=== PATIENT | male | born 1960 | race Caucasian/White ===

== ENCOUNTER 2016-10-03 01:31 | Emergency (ER) | payer SELFPAY ==
[~2016-10-03] VITALS: Ht 177.8 cm; Wt 48.1 kg
[2016-10-03] MEDS ORDERED: SODIUM CHLORIDE FLUSH 10ML SYR IVF ONE (02:00)
[2016-10-03 02:09] LABS: ASPARTATE AMINO TRANSFERASE 35 U/L (15-37); BLOOD UREA NITROGEN 23 mg/dL (7-18)
[2016-10-03 04:14] VITALS: BP 133/79
[2016-10-03] MEDS ORDERED: OMNIPAQUE 350 MG/ML, 100ML BOTTLE ONE (05:52)
== END 2016-10-03 04:17 | disposition home or self-care (01) ==
LOC: ED 02:50
DX: N39.0 Urinary tract infection, site not specified (principal); R31.9 Hematuria, unspecified; D72.829 Elevated white blood cell count, unspecified
CPT/HCPCS: 36415; 51702; 74177; 80053; 81001; 83690; 85025; 99284; Q9967

== ENCOUNTER 2016-10-04 14:16 | Emergency (ER) | payer SELFPAY ==
[~2016-10-04] VITALS: Ht 177.8 cm; Wt 51.0 kg
[2016-10-04 18:20] VITALS: BP 108/74
== END 2016-10-04 18:22 | disposition home or self-care (01) ==
LOC: ED 15:24
DX: N40.1 Benign prostatic hyperplasia with lower urinary tract symptoms (principal); R33.8 Other retention of urine
CPT/HCPCS: 51702; 81001; 99284

== ENCOUNTER 2019-03-15 13:51 | Emergency (ER) | payer MEDICAID ==
--- NOTE | 2019-03-15 14:00 | NUR ---
PT CALLED INTO TRIAGE- NOT IN LOBBY AT THIS TIME.
--- NOTE | 2019-03-15 14:13 | NUR ---
PT CALLED INTO TRIAGE, SECOND CALL- NOT IN LOBBY AT THIS TIME.
--- NOTE | 2019-03-15 14:29 | NUR ---
PT CALLED INTO TRIAGE, THIRD CALL- NOT IN LOBBY AT THIS TIME.
== END 2019-03-15 14:31 | disposition left against medical advice (07) ==
LOC: ED 14:25
DX: R07.9 Chest pain, unspecified (principal); Z53.21 Procedure and treatment not carried out due to patient leaving prior to being seen by health care provider

== ENCOUNTER 2019-03-15 16:15 | Emergency (ER) | payer MEDICAID ==
[~2019-03-15] VITALS: Ht 177.8 cm; Wt 52.8 kg
[2019-03-15 16:46] VITALS: BP 135/76
--- NOTE | 2019-03-15 17:43 | NUR ---
JUNIOR ART DIRECTOR: PT SHOWERED AND PROVIDED WITH CLOTHING. LEFT BEFORE DC PAPERWORK OR COMMUNITY RESOURCES WERE PROVIDED. PA AWARE.
== END 2019-03-15 17:45 | disposition left against medical advice (07) ==
LOC: ED 16:40
DX: B86 Scabies (principal)
CPT/HCPCS: 99281

== ENCOUNTER 2019-04-01 11:19 | Emergency (ER) | payer MEDICAID ==
[~2019-04-01] VITALS: Ht 177.8 cm; Wt 52.0 kg
[2019-04-01 11:32] VITALS: BP 120/64
[2019-04-01] MEDS ORDERED: CEFAZOLIN 1,000 MG IM ONE (12:00)
[2019-04-01] MEDS ORDERED: L.E.T SOLUTION TP ONE ×2 (12:00→12:06)
[2019-04-01] MEDS ORDERED: KETOROLAC 30 MG/1 ML IM ONE (12:00)
[2019-04-01] MEDS ORDERED: DIPH,PERTUSS(ACELL),TET VAC/PF 0.5 ML IM-VACC ONE ×2 (12:00→12:09)
[2019-04-01] MEDS ORDERED: KETOROLAC 30 MG/1 ML ONE (12:08)
[2019-04-01] MEDS ORDERED: CEFAZOLIN 1,000 MG ONE (12:09)
== END 2019-04-01 13:50 | disposition home or self-care (01) ==
LOC: ED 13:45
DX: S61.211A Laceration without foreign body of left index finger without damage to nail, initial encounter (principal); M54.2 Cervicalgia; W26.0XXA Contact with knife, initial encounter; Y93.89 Activity, other specified; Y92.410 Unspecified street and highway as the place of occurrence of the external cause; Y99.8 Other external cause status
CPT/HCPCS: 72125; 73030; 73130; 90471; 90715; 96372; 99284; J0690; J1885

== ENCOUNTER 2019-04-07 08:53 | Emergency (ER) | payer MEDICAID ==
[~2019-04-07] VITALS: Ht 177.8 cm; Wt 58.0 kg
[2019-04-07] MEDS ORDERED: OXYcodone/APAP 5/325MG TABLET PO ONE (09:00)
[2019-04-07] MEDS ORDERED: CEFAZOLIN 1,000 MG IM ONE (09:00)
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
[2019-04-07] MEDS ORDERED: OXYcodone/APAP 5/325MG TABLET ONE (09:07)
[2019-04-07] MEDS ORDERED: CEFAZOLIN 1,000 MG ONE (09:07)
--- NOTE | 2019-04-07 09:17 | NUR ---
PT MEDICATED PER EMAR. PT TOLERATED WELL. PT'S AOX4. RESPS EVEN AND UNLABORED.
[2019-04-07] MEDS ORDERED: LIDOCAINE-MPF 1%, 2ML ONE (09:23)
[2019-04-07] MEDS ORDERED: LIDOCAINE-MPF 1%, 5ML INFIL ONE (09:30)
[2019-04-07 10:16] VITALS: BP 120/67
--- NOTE | 2019-04-07 10:16 | NUR ---
Patient given discharge instructions and they have confirmed that they understand the instructions. Patient ambulatory with steady gait.
== END 2019-04-07 10:17 | disposition home or self-care (01) ==
LOC: ED 09:10
DX: L03.114 Cellulitis of left upper limb (principal); L02.512 Cutaneous abscess of left hand
CPT/HCPCS: 10060; 93971; 96372; 99284; J0690

== ENCOUNTER 2019-04-07 19:54 | Inpatient (IN) | payer MEDICAID ==
[~2019-04-07] VITALS: Ht 177.8 cm; Wt 57.0 kg
[2019-04-07] MEDS: VANCOMYCIN PMX 1GM/200ML 200 ML IV SCH ×2 (00:30→23:30)
--- NOTE | 2019-04-07 20:22 | NUR ---
pt to ed for left hand abscesses and lacerations with streaking up to axilla. pt was seen this am for the same. pt connected to monitors. vsrichard. REANNA Pillai, to bs for assessment. awaiting orders.
[2019-04-07] MEDS ORDERED: CEFTRIAXONE PMX 1GM/50ML 50 ML IV ONE (20:30)
[2019-04-07] MEDS ORDERED: MORPHINE SULFATE 4 MG/ML, 1ML IVPush ONE (20:30)
[2019-04-07] MEDS ORDERED: ONDANSETRON 2MG/ML, 2ML IVPush ONE (20:30)
[2019-04-07] MEDS ORDERED: CEFTRIAXONE PMX 1GM/50ML 50 ML ONE (20:46)
[2019-04-07] MEDS ORDERED: ONDANSETRON 2MG/ML, 2ML ONE (20:46)
[2019-04-07] MEDS ORDERED: MORPHINE SULFATE 4 MG/ML, 1ML ONE (20:47)
[2019-04-07 20:57] LABS: MEAN CORPUSCULAR HEMOGLOBIN 33.6 pg (27.5-34.5); MEAN CORPUSCULAR HGB CONC 33.6 g/dL (33.2-36.2); MEAN CORPUSCULAR VOLUME 100.1 fL (81-97); MEAN PLATELET VOLUME 7.9 fL (7.4-10.4); PLATELET COUNT 312 x10^3/uL (130-400); RED BLOOD COUNT 4.56 x10^6/uL (4.38-5.82); RED CELL DISTRIBUTION WIDTH 14.4 % (9.4-14.8)
[2019-04-07 21:05] LABS: ANION GAP 8 mmol/L (5-15); CALCIUM 8.7 mg/dL (8.5-10.1); CHLORIDE 98 mmol/L (98-107); CREATININE 1.19 mg/dL (0.7-1.3)
--- NOTE | 2019-04-07 21:10 | NUR ---
PT MEDICATED PER JUN. DIONNE SANABRIA. PT RESTING IN ROOM. NO NEEDS EXPRESSED. PLAN TO ADMIT. AWAITING ROOM ASSIGNMENT.
[2019-04-07] MEDS ORDERED: SODIUM CHLORIDE 0.9% 1,000ML IVBOLUS ONE (21:30)
[2019-04-07] MEDS ORDERED: SODIUM CHLORIDE FLUSH 10ML SYR IVF PRN (21:30)
--- NOTE | 2019-04-07 21:35 | NUR ---
PINK SEPSIS SHEET COMPLETED AND PLACED ON CHART. BC X2 COLLECTED. IVABX COMPLETED AFTER BC X2 COLLECTED. IVF BOLUS STARTED. VSS. NO NEEDS EXPRESSED. AWAITING ROOM ASSIGNMENT.
--- NOTE | 2019-04-07 22:10 | NUR ---
REPORT FROM AFTAB FLORES
[2019-04-07 22:14] LABS: MD YES
[2019-04-07 22:18] LABS: BAND#(MANUAL) 2.44 x10^3/uL; BANDS%(MANUAL) 13 % (0-7); LYMPH#(MANUAL) 0.75 x10^3/uL (1-3.4); LYMPHS% (MANUAL) 4 % (22-44); MONOS#(MANUAL) 0.94 x10^3/uL (0.3-2.7); MONOS% (MANUAL) 5 % (2-9); REACTIVE LYMPHS # (MANUAL) 0.38 x10^3/uL (0-0); REACTIVE LYMPHS % (MANUAL) 2 % (0-0); SEG#(MANUAL) 14.29 x10^3/uL (1.8-6.8); SEGS% (MANUAL) 76 % (42-75)
[2019-04-07 22:19] LABS: ANISOCYTOSIS 1+
[2019-04-07 22:20] LABS: <PLATELET ESTIMATE> ADEQUATE; <PLT MORPHOLOGY> NORMAL PLT MORPH
--- NOTE | 2019-04-07 22:35 | NUR ---
report to AFTAB baca
[2019-04-07] MEDS ORDERED: VANCOMYCIN PER PHARMACY MC PRN (23:00)
[2019-04-07] MEDS ORDERED: ACETAMINOPHEN 325 MG TABLET PO PRN (23:00)
[2019-04-07] MEDS ORDERED: morphine SULFATE 10 MG/ML, 1ML IVPush PRN (23:00)
[2019-04-07] MEDS ORDERED: PHARMACOKINETIC MONITORING MC PRN (23:30)
[2019-04-07] MEDS: KETOROLAC 30 MG/1 ML IV PRN (23:49)
[2019-04-07] MEDS: NICOTINE 14MG/24 HR PATCH.TD24 TD SCH (23:52)
[2019-04-08] MEDS: PIPERACILLIN/TAZO/PMX 3.375GM 50 ML IV SCH ×5 (00:01→23:45)
[2019-04-08 00:15] VITALS: BP 117/68
[2019-04-08 00:26] LABS: ALBUMIN 3.8 g/dL (3.4-5.0); BILIRUBIN, DIRECT 0.2 mg/dL (0.1-0.2)
[2019-04-08 00:27] LABS: BILIRUBIN,INDIRECT 0.4 mg/dL (0.0-2.0); BILIRUBIN,TOTAL 0.6 mg/dL (0.2-1.0); TOTAL PROTEIN 7.9 g/dL (6.4-8.2)
[2019-04-08] MEDS: VANCOMYCIN PMX 1GM/200ML 200 ML IV SCH ×2 (00:30→12:35)
[2019-04-08] MEDS: POTASSIUM CHLORIDE 20 MEQ, MAGNESIUM SULFATE 2 GM, THIAMINE 200 MG, MVI ADULT 10 ML, FO... IV SCH (03:26)
[2019-04-08] MEDS ORDERED: SODIUM CHLORIDE 0.9% 1,000ML IVBOLUS ONE (05:30)
[2019-04-08 06:01] LABS: ANION GAP 6 mmol/L (5-15); CALCIUM 7.9 mg/dL (8.5-10.1); CHLORIDE 105 mmol/L (98-107); CREATININE 0.99 mg/dL (0.7-1.3)
[2019-04-08] MEDS ORDERED: OMNIPAQUE 350 MG/ML, 100ML BOTTLE ONE (06:15)
[2019-04-08 06:23] LABS: MEAN CORPUSCULAR HEMOGLOBIN 33.7 pg (27.5-34.5); MEAN CORPUSCULAR HGB CONC 33.4 g/dL (33.2-36.2); MEAN CORPUSCULAR VOLUME 100.9 fL (81-97); MEAN PLATELET VOLUME 8.3 fL (7.4-10.4); PLATELET COUNT 259 x10^3/uL (130-400); RED BLOOD COUNT 3.87 x10^6/uL (4.38-5.82); RED CELL DISTRIBUTION WIDTH 14.2 % (9.4-14.8)
[2019-04-08 06:45] LABS: AMPHETAMINE SCREEN, URINE Positive (Negative); BARBITURATE SCREEN, URINE Negative (Negative); BENZODIAZEPINE SCREEN, URINE Negative (Negative); CANNABINOID SCREEN, URINE Negative (Negative); COCAINE SCREEN, URINE Negative (Negative); METHADONE SCREEN, URINE Negative (Negative); OPIATE SCREEN, URINE Positive (Negative)
[2019-04-08 06:46] VITALS: BP 125/69
[2019-04-08 07:01] LABS: MD YES
[2019-04-08 07:04] LABS: ANISOCYTOSIS 1+; BAND#(MANUAL) 2.69 x10^3/uL; BANDS%(MANUAL) 16 % (0-7); LYMPH#(MANUAL) 2.02 x10^3/uL (1-3.4); LYMPHS% (MANUAL) 12 % (22-44); MONOS#(MANUAL) 1.68 x10^3/uL (0.3-2.7); MONOS% (MANUAL) 10 % (2-9); SEG#(MANUAL) 10.42 x10^3/uL (1.8-6.8); SEGS% (MANUAL) 62 % (42-75)
[2019-04-08 07:05] LABS: <PLATELET ESTIMATE> ADEQUATE; <PLT MORPHOLOGY> NORMAL PLT MORPH
[2019-04-08 07:09] LABS: HCT (SEDRATE) 39.7 % (39.2-51.8)
[2019-04-08] MEDS: KETOROLAC 30 MG/1 ML IV PRN ×2 (08:35→19:36)
[2019-04-08] MEDS ORDERED: LORazepam 2 MG/ML, 1ML IVPush ONE (09:00)
[2019-04-08] MEDS ORDERED: LORazepam 1MG TABLET PO PRN ×2 (10:00)
[2019-04-08] MEDS ORDERED: LORazepam 2 MG/ML, 1ML IV PRN ×4 (10:00)
[2019-04-08] MEDS ORDERED: GADOTERATE 7.5 MMOL/15 ML SYR ONE (14:59)
[2019-04-08 15:00] VITALS: BP 110/68
[2019-04-08 19:28] VITALS: BP 145/79
[2019-04-08] MEDS: NICOTINE 14MG/24 HR PATCH.TD24 TD SCH (22:59)
[2019-04-09] MEDS: VANCOMYCIN PMX 1GM/200ML 200 ML IV SCH ×3 (00:22→23:58)
[2019-04-09 01:35] VITALS: BP 110/66
[2019-04-09 03:35] LABS: CLOSTRIDIUM DIFFICILE TOXIN NEGATIVE (Negative)
[2019-04-09 03:36] LABS: CLOSTRIDIUM DIFFICILE ANTIGEN POSITIVE
[2019-04-09] MEDS: METRONIDAZOLE PMX 500MG/100ML 100 ML IV SCH ×2 (04:21→11:27)
[2019-04-09] MEDS: POTASSIUM CHLORIDE 20 MEQ, MAGNESIUM SULFATE 2 GM, THIAMINE 200 MG, MVI ADULT 10 ML, FO... IV SCH (04:21)
[2019-04-09 06:03] LABS: BASOPHILS # (AUTO) 0.03 x10^3/uL (0-0.1); BASOPHILS % (AUTO) 0 % (0-1); EOSINOPHILS # (AUTO) 0.29 x10^3/uL (0-0.4); EOSINOPHILS % (AUTO) 2 % (1-7); LYMPHOCYTES # (AUTO) 1.56 x10^3/uL (1-3.4); LYMPHOCYTES % (AUTO) 12 % (22-44); MD NO; MEAN CORPUSCULAR HEMOGLOBIN 33.4 pg (27.5-34.5); MEAN CORPUSCULAR HGB CONC 32.9 g/dL (33.2-36.2); MEAN CORPUSCULAR VOLUME 101.6 fL (81-97); MEAN PLATELET VOLUME 8.3 fL (7.4-10.4); MONOCYTES # (AUTO) 0.95 x10^3/uL (0.2-0.8); MONOCYTES % (AUTO) 7 % (2-9); NEUTROPHILS # (AUTO) 10.78 x10^3/uL (1.8-6.8); NEUTROPHILS % (AUTO) 79 % (42-75); PLATELET COUNT 214 x10^3/uL (130-400); RED BLOOD COUNT 3.87 x10^6/uL (4.38-5.82); RED CELL DISTRIBUTION WIDTH 14.3 % (9.4-14.8)
[2019-04-09 06:10] LABS: CHLORIDE 108 mmol/L (98-107)
[2019-04-09 06:17] LABS: ALANINE AMINOTRANSFERASE 77 U/L (12-78); ALBUMIN 2.3 g/dL (3.4-5.0); ALKALINE PHOSPHATASE 255 U/L (45-117); ANION GAP 7 mmol/L (5-15); BILIRUBIN,TOTAL 0.3 mg/dL (0.2-1.0); CREATININE 0.95 mg/dL (0.7-1.3); TOTAL PROTEIN 6.2 g/dL (6.4-8.2)
[2019-04-09] MEDS: PIPERACILLIN/TAZO/PMX 3.375GM 50 ML IV SCH ×3 (06:25→19:40)
[2019-04-09 07:09] VITALS: BP 145/74
[2019-04-09] MEDS: KETOROLAC 30 MG/1 ML IV PRN (09:15)
[2019-04-09] MEDS: LORazepam 1MG TABLET PO PRN ×2 (11:27→21:46)
[2019-04-09 13:59] VITALS: BP 162/92
[2019-04-09] MEDS: LORazepam 0.5MG TABLET PO PRN (15:59)
[2019-04-09] MEDS: VANCOMYCIN 50 MG/ML ORAL SUSP PO SCH ×2 (16:27→21:46)
[2019-04-09 19:17] VITALS: BP 128/75
[2019-04-09] MEDS: NICOTINE 14MG/24 HR PATCH.TD24 TD SCH (21:45)
[2019-04-09] MEDS ORDERED: POTASSIUM CHLORIDE 20 MEQ, MAGNESIUM SULFATE 2 GM, THIAMINE 200 MG, MVI ADULT 10 ML, FO... IV SCH (22:39)
[2019-04-10] MEDS: PIPERACILLIN/TAZO/PMX 3.375GM 50 ML IV SCH ×4 (01:43→22:37)
[2019-04-10 01:51] VITALS: BP 130/69
[2019-04-10] MEDS: VANCOMYCIN 50 MG/ML ORAL SUSP PO SCH ×4 (04:14→22:37)
[2019-04-10 05:45] LABS: BASOPHILS # (AUTO) 0.04 x10^3/uL (0-0.1); BASOPHILS % (AUTO) 1 % (0-1); EOSINOPHILS # (AUTO) 0.39 x10^3/uL (0-0.4); EOSINOPHILS % (AUTO) 4 % (1-7); LYMPHOCYTES # (AUTO) 1.73 x10^3/uL (1-3.4); LYMPHOCYTES % (AUTO) 18 % (22-44); MD NO; MEAN CORPUSCULAR HEMOGLOBIN 33.1 pg (27.5-34.5); MEAN CORPUSCULAR HGB CONC 33.5 g/dL (33.2-36.2); MEAN PLATELET VOLUME 8.1 fL (7.4-10.4); MONOCYTES # (AUTO) 0.84 x10^3/uL (0.2-0.8); MONOCYTES % (AUTO) 9 % (2-9); NEUTROPHILS # (AUTO) 6.69 x10^3/uL (1.8-6.8); NEUTROPHILS % (AUTO) 69 % (42-75); PLATELET COUNT 263 x10^3/uL (130-400); RED BLOOD COUNT 4.23 x10^6/uL (4.38-5.82); RED CELL DISTRIBUTION WIDTH 14.3 % (9.4-14.8)
[2019-04-10 05:56] LABS: ALANINE AMINOTRANSFERASE 69 U/L (12-78); ALBUMIN 2.5 g/dL (3.4-5.0); ANION GAP 5 mmol/L (5-15); CALCIUM 8.4 mg/dL (8.5-10.1); CHLORIDE 110 mmol/L (98-107); CREATININE 0.87 mg/dL (0.7-1.3)
[2019-04-10 05:59] LABS: ALKALINE PHOSPHATASE 226 U/L (45-117); BILIRUBIN,TOTAL 0.4 mg/dL (0.2-1.0)
[2019-04-10 07:16] VITALS: BP 137/79
[2019-04-10] MEDS: LORazepam 0.5MG TABLET PO PRN (11:39)
[2019-04-10] MEDS: KETOROLAC 30 MG/1 ML IV PRN ×2 (11:39→20:02)
[2019-04-10 12:43] VITALS: BP 123/65
[2019-04-10] MEDS: THIAMINE 100MG TABLET PO SCH (13:16)
[2019-04-10] MEDS: MULTIVITAMIN 1 TABLET PO SCH (13:16)
[2019-04-10] MEDS: FOLIC ACID 1 MG TABLET PO SCH (13:16)
[2019-04-10] MEDS: VANCOMYCIN PMX 1GM/200ML 200 ML IV SCH (13:16)
[2019-04-10 19:13] VITALS: BP 136/77
[2019-04-10] MEDS: NICOTINE 14MG/24 HR PATCH.TD24 TD SCH (22:37)
[2019-04-11 01:00] VITALS: BP 147/79
[2019-04-11] MEDS: VANCOMYCIN PMX 1GM/200ML 200 ML IV SCH ×2 (01:37→14:02)
[2019-04-11] MEDS: PIPERACILLIN/TAZO/PMX 3.375GM 50 ML IV SCH ×3 (04:29→16:14)
[2019-04-11] MEDS: KETOROLAC 30 MG/1 ML IV PRN ×3 (04:30→17:01)
[2019-04-11] MEDS: VANCOMYCIN 50 MG/ML ORAL SUSP PO SCH ×3 (04:30→16:14)
[2019-04-11 08:43] VITALS: BP 135/82
[2019-04-11] MEDS: THIAMINE 100MG TABLET PO SCH (10:36)
[2019-04-11] MEDS: FOLIC ACID 1 MG TABLET PO SCH (10:36)
[2019-04-11] MEDS: MULTIVITAMIN 1 TABLET PO SCH (10:36)
[2019-04-11 15:13] VITALS: BP 133/80
== END 2019-04-11 18:20 | disposition left against medical advice (07) | DRG 872 ==
LOC: ED 20:16 → EDIP 21:30 → 4NE 23:05
PROVIDERS: ADMIT Family Medicine; ATTEND Internal Medicine
DX: A41.9 Sepsis, unspecified organism (principal); E46 Unspecified protein-calorie malnutrition; L03.113 Cellulitis of right upper limb; L03.114 Cellulitis of left upper limb; Z68.1 Body mass index [BMI] 19.9 or less, adult; D75.89 Other specified diseases of blood and blood-forming organs; F10.10 Alcohol abuse, uncomplicated; Z53.29 Procedure and treatment not carried out because of patient's decision for other reasons; R73.9 Hyperglycemia, unspecified; F17.210 Nicotine dependence, cigarettes, uncomplicated; I88.9 Nonspecific lymphadenitis, unspecified; Z59.0 Homelessness; Z71.6 Tobacco abuse counseling
CPT/HCPCS: 36415; 73130; 84145; 99285; J3370; J7042; 70450; 80048; 80053; 80076; 80202; 80307; 82607; 83605; 83735; 84443; 85025; 85651; 86140; 87040; 87081; 87324; 87493; G0378; J0696; J1885; J2405; J2543; J3411; J3475; J3480; Q9967; A9575; J2060; J2270; J7030

== ENCOUNTER 2019-04-22 22:19 | Emergency (ER) | payer MEDICAID ==
[~2019-04-22] VITALS: Ht 177.8 cm; Wt 51.7 kg
--- NOTE | 2019-04-22 22:24 | NUR ---
LEAD RECOVERER: NIL WHEN CALLED FOR TRIAGE
[2019-04-22 22:34] VITALS: BP 126/61
--- NOTE | 2019-04-22 22:39 | NUR ---
PATIENT AMBULATING STEADILY, CLEAR SPEECH, PLACED BACK OUT IN LOBBY
--- NOTE | 2019-04-22 23:17 | NUR ---
DC EDUCATION PROVIDED, PT DEMONSTRATES UNDERSTANDING. PT AMBULATED STEADILY TO DC WITH RN
[2019-04-22] MEDS ORDERED: IBUPROFEN 200 MG TABLET PO ONE (23:30)
== END 2019-04-22 23:18 | disposition home or self-care (01) ==
LOC: ED 23:12
DX: K62.3 Rectal prolapse (principal); K40.90 Unilateral inguinal hernia, without obstruction or gangrene, not specified as recurrent; F17.210 Nicotine dependence, cigarettes, uncomplicated; K59.00 Constipation, unspecified; Z59.0 Homelessness
CPT/HCPCS: 99283

== ENCOUNTER 2019-04-27 07:10 | Emergency (ER) | payer MEDICAID ==
[~2019-04-27] VITALS: Ht 177.8 cm; Wt 50.7 kg
--- NOTE | 2019-04-27 08:07 | NUR ---
TAPE CUTTER: PT TO ROOM FROM DHRUV SOMMERS
--- NOTE | 2019-04-27 08:25 | NUR ---
THIS IS A 58 YO M W/ C/O RIGHT LOWER ABD PAIN. DIARRHEA AND STATES "MY HERNIA FELL OUT, I HAD TO PUSH IT BACK INTO MY BODY". PATIENT HAS VISIBLE PROTUSION ON THE RIGHT INGUINAL AREA. RESPIRATIONS ARE EVEN AND UNLABORED. PATIENT IS IN NO ACUTE DISTRESS. PATIENT IS RESTING ON GURNEY WITH CALL LIGHT IN REACH. DENIES FURTHER NEEDS AT THIS TIME.
--- NOTE | 2019-04-27 08:27 | NUR ---
PATIENT AMBULATED TO THE BATHROOM WITH A STEADY GAIT.
[2019-04-27 08:29] VITALS: BP 141/83
[2019-04-27] MEDS ORDERED: CEPH-376 PO (08:33)
[2019-04-27] MEDS ORDERED: NAPR-685 PO (08:33)
[2019-04-27] MEDS ORDERED: IBUP-1222 PO (08:33)
--- NOTE | 2019-04-27 08:58 | NUR ---
TASK RN: PT RESTING ON BHASKAR. ZIGGY. PIV INITIATED FOR CT ABD/PELVIS W/ CONT. PT EDUCATED ON NEED FOR CT AND IS AGREEABLE TO THIS. PT ALSO EDUCATED ON NEED FOR UA SAMPLE. URINAL LEFT AT BEDSIDE.
[2019-04-27 09:09] LABS: MEAN CORPUSCULAR HGB CONC 33.9 g/dL (33.2-36.2); MEAN CORPUSCULAR VOLUME 97.3 fL (81-97); MEAN PLATELET VOLUME 7.7 fL (7.4-10.4); PLATELET COUNT 319 x10^3/uL (130-400); RED BLOOD COUNT 4.11 x10^6/uL (4.38-5.82); RED CELL DISTRIBUTION WIDTH 14.3 % (9.4-14.8)
[2019-04-27 09:17] LABS: ALANINE AMINOTRANSFERASE 46 U/L (12-78); ANION GAP 8 mmol/L (5-15); CALCIUM 9.5 mg/dL (8.5-10.1); CHLORIDE 102 mmol/L (98-107); CREATININE 0.91 mg/dL (0.7-1.3)
[2019-04-27 09:20] LABS: ALKALINE PHOSPHATASE 181 U/L (45-117); BILIRUBIN,TOTAL 0.6 mg/dL (0.2-1.0); TOTAL PROTEIN 8.3 g/dL (6.4-8.2)
--- NOTE | 2019-04-27 09:22 | NUR ---
URINE COLLECTED AND SENT TO LAB.
[2019-04-27 09:37] LABS: MICROSCOPIC INDICATED
[2019-04-27 09:43] LABS: BASOPHILS # (AUTO) 0.05 x10^3/uL (0-0.1); BASOPHILS % (AUTO) 0 % (0-1); EOSINOPHILS # (AUTO) 0.05 x10^3/uL (0-0.4); EOSINOPHILS % (AUTO) 0 % (1-7); LYMPHOCYTES # (AUTO) 1.13 x10^3/uL (1-3.4); LYMPHOCYTES % (AUTO) 9 % (22-44); MD SCAN; MONOCYTES # (AUTO) 0.62 x10^3/uL (0.2-0.8); MONOCYTES % (AUTO) 5 % (2-9); NEUTROPHILS # (AUTO) 10.78 x10^3/uL (1.8-6.8); NEUTROPHILS % (AUTO) 85 % (42-75)
--- NOTE | 2019-04-27 09:57 | NUR ---
PATIENT AMBULATED TO THE COMMODE WITH A STEADY GAIT. HAT PLACED IN COMMODE TO COLLECT STOOL SAMPLE.
--- NOTE | 2019-04-27 10:14 | NUR ---
STOOL COLLECTED AND SENT TO LAB.
[2019-04-27 10:27] LABS: CULTURE INDICATED? NO
--- NOTE | 2019-04-27 10:34 | NUR ---
Patient given discharge instructions and they have confirmed that they understand the instructions. Patient ambulatory with steady gait.
[2019-04-27 11:34] LABS: CLOSTRIDIUM DIFFICILE ANTIGEN POSITIVE; CLOSTRIDIUM DIFFICILE TOXIN POSITIVE (Negative)
--- NOTE | 2019-04-27 11:37 | NUR ---
RECEIVED CALL FROM LAB, CDIFF POSITIVE ANTIGEN AND TOXIN. PT HAS BEEN DC'D. TO BE DISCUSSED WITH .
--- NOTE | 2019-04-27 11:50 | NUR ---
DISCUSSED C.DIFF LAB RESULTS WITH DR. MENSAH. CALLED [facility] AND SPOKE WITH KIM, WHO STATES HE WILL NOTIFY PATIENT TO COME BACK TO THE ED FOR FURTHER TREATMENT IF HE PRESENTS TO THE SNF. PATIENT HAS NO ADDRESS OR PHONE AT THIS TIME AND IS HOMELESS.
== END 2019-04-27 10:42 | disposition home or self-care (01) ==
LOC: ED 07:30
DX: K62.3 Rectal prolapse (principal); R19.7 Diarrhea, unspecified
CPT/HCPCS: 36415; 80053; 81001; 85025; 87324; 89055; 99283

== ENCOUNTER 2019-06-21 04:00 | Emergency (ER) | payer MEDICAID ==
[~2019-06-21] VITALS: Ht 177.8 cm; Wt 57.9 kg
[~2019-06-21 04:00] MED LIST: CEPH-376 PO; IBUP-1222 PO; NAPR-685 PO
--- NOTE | 2019-06-21 04:06 | NUR ---
NIL X2 [id number]
[2019-06-21 04:07] VITALS: BP 166/79
--- NOTE | 2019-06-21 04:26 | NUR ---
PT TO ED WITH C/O TRIPPING AND KNOCKING OUT TEETH. PT REPORTS SEVERAL LOWER AND 1 UPPER TOOTH MISSING, ALSO REPORTS SEVERAL LOOSE TEETH. PT HAS SEVERAL CHOWDARY TEETH. PT DENIES LOC OR OTHER TRAUMA, DENIES OTHER C/O AT THIS TIME. NO SIGNS OF RECENT FACIAL TRAUMA NOTED, PT GUMS APPEAR INTACT THROUGHOUT. PT PLACED ON SPO2 MONITOR, CALL LIGHT WITHIN REACH, ALL SAFETY MEASURES IN PLACE.
[2019-06-21] MEDS ORDERED: HYDROcodone/APAP 5/325 TABLET PO ONE (05:00)
[2019-06-21] MEDS ORDERED: HYDROcodone/APAP 5/325 TABLET ONE (05:21)
== END 2019-06-21 05:52 | disposition home or self-care (01) ==
LOC: ED 05:07
DX: K08.89 Other specified disorders of teeth and supporting structures (principal)
CPT/HCPCS: 99283

== ENCOUNTER 2019-10-14 11:25 | Inpatient (IN) | payer MEDICAID ==
[~2019-10-14] VITALS: Ht 182.9 cm; Wt 52.8 kg
[2019-10-14 12:18] LABS: BASOPHILS # (AUTO) 0.01 x10^3/uL (0-0.1); BASOPHILS % (AUTO) 0 % (0-1); EOSINOPHILS % (AUTO) 0 % (1-7); LYMPHOCYTES % (AUTO) 6 % (22-44); MD NO; MEAN CORPUSCULAR HEMOGLOBIN 31.3 pg (27.5-34.5); MEAN CORPUSCULAR HGB CONC 33.7 g/dL (33.2-36.2); MEAN CORPUSCULAR VOLUME 92.8 fL (81-97); MEAN PLATELET VOLUME 7.5 fL (7.4-10.4); MONOCYTES # (AUTO) 0.71 x10^3/uL (0.2-0.8); MONOCYTES % (AUTO) 7 % (2-9); NEUTROPHILS # (AUTO) 9.51 x10^3/uL (1.8-6.8); NEUTROPHILS % (AUTO) 88 % (42-75); PLATELET COUNT 265 x10^3/uL (130-400); RED CELL DISTRIBUTION WIDTH 17.6 % (9.4-14.8)
[2019-10-14 12:26] LABS: ALANINE AMINOTRANSFERASE 27 U/L (12-78); ALBUMIN 3.8 g/dL (3.4-5.0); ANION GAP 9 mmol/L (5-15); CALCIUM 8.5 mg/dL (8.5-10.1); CHLORIDE 107 mmol/L (98-107); CREATININE 1.67 mg/dL (0.7-1.3)
[2019-10-14 12:29] LABS: ALKALINE PHOSPHATASE 113 U/L (45-117); BILIRUBIN,TOTAL 1.2 mg/dL (0.2-1.0); TOTAL PROTEIN 7.7 g/dL (6.4-8.2)
--- NOTE | 2019-10-14 13:02 | NUR ---
TASK RN NOTE: PT RETURNED FROM CT SCAN, ASSISTED TO STANDING POSITION FOR URINAL USE. PT VERY UNSTEADY ON FEET. RN HELPED PT BACK INTO BED AND ASSISTED WITH URINAL USE. UA SENT. PT EDUCATED CAFETERIA ATTENDANT LIGHT USE AND IMPORTANCE OF CALLING FOR HELP OUT OF BED. PT VERBALIZED UNDERSTANDING.
[2019-10-14 13:17] LABS: MICROSCOPIC NOT IND
[2019-10-14 13:31] LABS: AMPHETAMINE SCREEN, URINE Positive (Negative); BENZODIAZEPINE SCREEN, URINE Negative (Negative); CANNABINOID SCREEN, URINE Negative (Negative); COCAINE SCREEN, URINE Negative (Negative); OPIATE SCREEN, URINE Negative (Negative)
--- NOTE | 2019-10-14 13:31 | NUR ---
PT GIVEN MEAL TRAY
[2019-10-14 13:42] LABS: BARBITURATE SCREEN, URINE Negative (Negative); METHADONE SCREEN, URINE Negative (Negative)
[2019-10-14] MEDS ORDERED: THIAMINE 100MG TABLET ONE (13:51)
[2019-10-14] MEDS ORDERED: LORazepam 2 MG/ML, 1ML ONE (13:51)
[2019-10-14] MEDS ORDERED: LORazepam 2 MG/ML, 1ML IVPush ONE (14:00)
[2019-10-14] MEDS ORDERED: THIAMINE 100MG TABLET PO ONE (14:00)
[2019-10-14] MEDS ORDERED: PLEASE ENTER HEIGHT AND WEIGHT MC SCH (14:00)
--- NOTE | 2019-10-14 14:06 | NUR ---
ADMITTING MD AT BEDSIDE
[2019-10-14] MEDS ORDERED: THIAMINE 100 MG in SODIUM CHLORIDE 0.9% 50 ML IV SCH (14:30)
[2019-10-14] MEDS ORDERED: hydrALAzine 20 MG/ML, 1ML IVPush PRN (14:30)
--- NOTE | 2019-10-14 15:08 | NUR ---
REPORT TO HAY UGALDE
[2019-10-14 15:29] VITALS: BP 138/80
[2019-10-14 15:32] VITALS: BP 138/80
[2019-10-14] MEDS: SODIUM CHLORIDE 0.9% 1,000 ML IV SCH (15:49)
[2019-10-14 19:25] VITALS: BP 137/75
[2019-10-14] MEDS: CHLORDIAZEPOXIDE 25 MG CAPSULE PO SCH (20:00)
[2019-10-14] MEDS: FAMOTIDINE 20 MG/2 ML IVPush SCH (20:00)
[2019-10-14] MEDS: LORazepam 2 MG/ML, 1ML IVPush PRN ×2 (20:00→21:13)
[2019-10-15 01:13] VITALS: BP 130/78
[2019-10-15] MEDS: SODIUM CHLORIDE 0.9% 1,000 ML IV SCH ×3 (02:08→21:04)
[2019-10-15 05:01] LABS: BASOPHILS # (AUTO) 0.05 x10^3/uL (0-0.1); BASOPHILS % (AUTO) 1 % (0-1); EOSINOPHILS # (AUTO) 0.17 x10^3/uL (0-0.4); EOSINOPHILS % (AUTO) 3 % (1-7); LYMPHOCYTES # (AUTO) 1.96 x10^3/uL (1-3.4); LYMPHOCYTES % (AUTO) 28 % (22-44); MD NO; MEAN CORPUSCULAR HEMOGLOBIN 31.2 pg (27.5-34.5); MEAN CORPUSCULAR HGB CONC 33.4 g/dL (33.2-36.2); MEAN CORPUSCULAR VOLUME 93.3 fL (81-97); MEAN PLATELET VOLUME 7.8 fL (7.4-10.4); MONOCYTES % (AUTO) 10 % (2-9); NEUTROPHILS # (AUTO) 4.09 x10^3/uL (1.8-6.8); NEUTROPHILS % (AUTO) 59 % (42-75); PLATELET COUNT 223 x10^3/uL (130-400); RED BLOOD COUNT 3.93 x10^6/uL (4.38-5.82); RED CELL DISTRIBUTION WIDTH 17.8 % (9.4-14.8)
[2019-10-15 05:14] LABS: ALBUMIN 3.1 g/dL (3.4-5.0); ANION GAP 7 mmol/L (5-15); CALCIUM 8.1 mg/dL (8.5-10.1); CHLORIDE 110 mmol/L (98-107)
[2019-10-15 05:19] LABS: ALANINE AMINOTRANSFERASE 21 U/L (12-78); ALKALINE PHOSPHATASE 93 U/L (45-117); BILIRUBIN,TOTAL 1.2 mg/dL (0.2-1.0); CREATININE 1.03 mg/dL (0.7-1.3); TOTAL PROTEIN 6.3 g/dL (6.4-8.2)
[2019-10-15] MEDS: CHLORDIAZEPOXIDE 25 MG CAPSULE PO SCH (05:21)
[2019-10-15 06:30] VITALS: BP 134/80
[2019-10-15] MEDS: LORazepam 2 MG/ML, 1ML IVPush PRN (07:45)
[2019-10-15] MEDS: FAMOTIDINE 20 MG/2 ML IVPush SCH (07:45)
[2019-10-15] MEDS ORDERED: LORazepam 0.5MG TABLET PO PRN (08:30)
[2019-10-15] MEDS ORDERED: LORazepam 2 MG/ML, 1ML IV PRN ×3 (08:30)
[2019-10-15] MEDS ORDERED: LORazepam 1MG TABLET PO PRN ×3 (08:30)
[2019-10-15] MEDS: FOLIC ACID 1 MG TABLET PO SCH (08:52)
[2019-10-15] MEDS: MULTIVITAMIN 1 TABLET PO SCH (08:52)
[2019-10-15] MEDS: LORazepam 2 MG/ML, 1ML IV PRN ×2 (08:52→12:43)
[2019-10-15] MEDS: THIAMINE 100MG TABLET PO SCH (08:52)
[2019-10-15] MEDS ORDERED: HALOPERIDOL 5 MG/ML IM PRN (10:30)
[2019-10-15] MEDS ORDERED: CHLORDIAZEPOXIDE 25 MG CAPSULE PO PRN (11:00)
[2019-10-15 12:02] VITALS: BP 132/76
[2019-10-15] MEDS ORDERED: ENOXAPARIN 40 MG/0.4 ML SQ SCH (14:30)
[2019-10-15 19:28] VITALS: BP 121/72
[2019-10-15] MEDS: FAMOTIDINE 20 MG TABLET PO SCH (21:04)
[2019-10-16 00:15] VITALS: BP 119/74
[2019-10-16 06:10] LABS: BASOPHILS # (AUTO) 0.06 x10^3/uL (0-0.1); BASOPHILS % (AUTO) 1 % (0-1); EOSINOPHILS # (AUTO) 0.23 x10^3/uL (0-0.4); EOSINOPHILS % (AUTO) 4 % (1-7); LYMPHOCYTES # (AUTO) 1.24 x10^3/uL (1-3.4); LYMPHOCYTES % (AUTO) 21 % (22-44); MD NO; MEAN CORPUSCULAR HGB CONC 33.9 g/dL (33.2-36.2); MEAN CORPUSCULAR VOLUME 94.2 fL (81-97); MEAN PLATELET VOLUME 7.4 fL (7.4-10.4); MONOCYTES # (AUTO) 0.39 x10^3/uL (0.2-0.8); MONOCYTES % (AUTO) 7 % (2-9); NEUTROPHILS # (AUTO) 3.93 x10^3/uL (1.8-6.8); NEUTROPHILS % (AUTO) 67 % (42-75); PLATELET COUNT 220 x10^3/uL (130-400); RED BLOOD COUNT 3.92 x10^6/uL (4.38-5.82); RED CELL DISTRIBUTION WIDTH 17.9 % (9.4-14.8)
[2019-10-16 06:17] LABS: ALANINE AMINOTRANSFERASE 17 U/L (12-78); ANION GAP 6 mmol/L (5-15); CALCIUM 8.3 mg/dL (8.5-10.1); CHLORIDE 109 mmol/L (98-107); CREATININE 0.86 mg/dL (0.7-1.3)
[2019-10-16 06:22] LABS: ALKALINE PHOSPHATASE 99 U/L (45-117); BILIRUBIN,TOTAL 0.7 mg/dL (0.2-1.0); TOTAL PROTEIN 6.2 g/dL (6.4-8.2)
[2019-10-16 06:52] VITALS: BP 101/68
[2019-10-16] MEDS: FOLIC ACID 1 MG TABLET PO SCH (07:51)
[2019-10-16] MEDS: SODIUM CHLORIDE 0.9% 1,000 ML IV SCH (07:51)
[2019-10-16] MEDS: FAMOTIDINE 20 MG TABLET PO SCH (07:51)
[2019-10-16] MEDS: THIAMINE 100MG TABLET PO SCH (07:51)
[2019-10-16] MEDS: MULTIVITAMIN 1 TABLET PO SCH (07:51)
[2019-10-16] MEDS ORDERED: NICOTINE 14MG/24 HR PATCH.TD24 TD SCH (11:00)
[2019-10-16] MEDS ORDERED: NICOTINE 14MG/24 HR PATCH.TD24 ONE (11:02)
[2019-10-16 12:52] VITALS: BP 124/75
== END 2019-10-16 13:29 | disposition left against medical advice (07) | DRG 91 ==
LOC: ED 13:49 → EDIP 13:53 → 4EST 15:23
PROVIDERS: ADMIT Internal Medicine; ATTEND Internal Medicine
DX: G92 Toxic encephalopathy (principal); N17.0 Acute kidney failure with tubular necrosis; E43 Unspecified severe protein-calorie malnutrition; F10.231 Alcohol dependence with withdrawal delirium; Z68.1 Body mass index [BMI] 19.9 or less, adult; F15.90 Other stimulant use, unspecified, uncomplicated; D64.9 Anemia, unspecified; Z53.29 Procedure and treatment not carried out because of patient's decision for other reasons; Z79.899 Other long term (current) drug therapy
CPT/HCPCS: 36415; 99285; J3490; 70450; 71045; 80053; 80307; 81003; 82140; 82607; 84443; 85025; 93005; G0378; J1650; J3411; J1630; J2060; J7030

== ENCOUNTER 2019-12-10 19:36 | Emergency (ER) | payer MEDICAID, OTHER ==
[~2019-12-10] VITALS: Ht 177.8 cm; Wt 54.5 kg
--- NOTE | 2019-12-10 19:41 | NUR ---
PT ACCOMPANIED BY [facility] OFFICER VAHE. PROTRUDING RT INGUINAL HERNIA. PT STATES HE WAS SUPPOSED TO HAVE SURGERY ON 11/05/19 AT [facility], BUT IT DIDN'T HAPPEN.
--- NOTE | 2019-12-10 19:44 | NUR ---
HERNIA REDUCED PER SOM LEIJA. Addendum: 12/10/19 at 1957 by HOMA Correction: hernia reduced per SOM Duarte
--- NOTE | 2019-12-10 20:10 | NUR ---
PT REQUESTING PAIN MED; WILL NOTIFY PROVIDER.
[2019-12-10] MEDS ORDERED: KETOROLAC 30 MG/1 ML ONE (20:23)
[2019-12-10 20:27] VITALS: BP 119/75
--- NOTE | 2019-12-10 20:27 | NUR ---
TORADOL GIVEN PER EMAR
[2019-12-10] MEDS ORDERED: KETOROLAC 30 MG/1 ML IVPush ONE (20:30)
== END 2019-12-10 21:04 | disposition home or self-care (01) ==
LOC: ED 20:58
DX: K40.91 Unilateral inguinal hernia, without obstruction or gangrene, recurrent (principal); F17.210 Nicotine dependence, cigarettes, uncomplicated
CPT/HCPCS: 96374; 99283; J1885

== ENCOUNTER 2020-03-04 20:12 | Emergency (ER) | payer MEDICAID, OTHER ==
[~2020-03-04] VITALS: Ht 175.3 cm; Wt 63.7 kg
[2020-03-04 20:21] VITALS: BP 121/71
--- NOTE | 2020-03-04 20:57 | NUR ---
NAD, waiting for dispo.
== END 2020-03-04 21:30 | disposition home or self-care (01) ==
LOC: ED 21:25
DX: F31.9 Bipolar disorder, unspecified (principal); Z76.0 Encounter for issue of repeat prescription; F17.210 Nicotine dependence, cigarettes, uncomplicated
CPT/HCPCS: 99281; 99406

== ENCOUNTER 2020-03-21 10:21 | Emergency (ER) | payer MEDICAID ==
[~2020-03-21] VITALS: Ht 175.3 cm; Wt 62.1 kg
[2020-03-21 10:31] VITALS: BP 119/73
== END 2020-03-21 11:32 | disposition home or self-care (01) ==
LOC: ED 11:24
DX: R00.0 Tachycardia, unspecified (principal); Z76.0 Encounter for issue of repeat prescription
CPT/HCPCS: 99281

== ENCOUNTER 2020-03-29 08:50 | Emergency (ER) | payer MEDICAID ==
[~2020-03-29] VITALS: Ht 175.3 cm; Wt 63.0 kg
--- NOTE | 2020-03-29 09:19 | NUR ---
Pt placed on monitor. Complains of right leg and calf pain for 6 days after object fell on his leg at work at the [employer] program he is in. ecchymosis to the medial ankle is purple is discoloration.
--- NOTE | 2020-03-29 10:52 | NUR ---
PT PROVIDED URINAL. PT AWAITING US
--- NOTE | 2020-03-29 11:00 | NUR ---
BEDSIDE US TO ROOM AT THIS TIME.
[2020-03-29 12:04] VITALS: BP 130/76
== END 2020-03-29 12:07 | disposition home or self-care (01) ==
LOC: ED 09:11
DX: M79.661 Pain in right lower leg (principal); M79.89 Other specified soft tissue disorders
CPT/HCPCS: 99284; 99285

== ENCOUNTER 2020-04-27 09:40 | Emergency (ER) | payer MEDICAID ==
[~2020-04-27] VITALS: Ht 182.9 cm; Wt 60.9 kg
[2020-04-27] MEDS ORDERED: ONDANSETRON 2MG/ML, 2ML ONE (10:14)
[2020-04-27] MEDS ORDERED: MORPHINE SULFATE 4 MG/ML, 1ML ONE (10:14)
[2020-04-27] MEDS ORDERED: SODIUM CHLORIDE FLUSH 10ML SYR IVF ONE (10:30)
[2020-04-27] MEDS ORDERED: MORPHINE SULFATE 4 MG/ML, 1ML IVPush PRN (10:30)
[2020-04-27] MEDS ORDERED: ONDANSETRON 2MG/ML, 2ML IVPush ONE (10:30)
[2020-04-27] MEDS ORDERED: SODIUM CHLORIDE 0.9% 1,000ML IVBOLUS ONE (10:30)
--- NOTE | 2020-04-27 10:30 | NUR ---
MULTIPLE ATTEMPTS TO START IV WITH NO SUCESS.
--- NOTE | 2020-04-27 10:49 | NUR ---
PT TO CT
[2020-04-27 11:00] LABS: BASOPHILS % (AUTO) 0 % (0-1); EOSINOPHILS % (AUTO) 0 % (1-7); LYMPHOCYTES % (AUTO) 8 % (22-44); MEAN CORPUSCULAR HEMOGLOBIN 30.8 pg (27.5-34.5); MEAN CORPUSCULAR HGB CONC 33.6 g/dL (33.2-36.2); MEAN PLATELET VOLUME 8.1 fL (7.4-10.4); MONOCYTES % (AUTO) 7 % (2-9); NEUTROPHILS % (AUTO) 84 % (42-75); PLATELET COUNT 277 x10^3/uL (130-400); RED CELL DISTRIBUTION WIDTH 13.3 % (9.4-14.8)
[2020-04-27 11:12] LABS: CHLORIDE 107 mmol/L (98-107)
[2020-04-27 11:16] LABS: ALANINE AMINOTRANSFERASE 51 U/L (12-78); ALBUMIN 4.4 g/dL (3.4-5.0); ALKALINE PHOSPHATASE 110 U/L (45-117); ANION GAP 10 mmol/L (5-15); BILIRUBIN,TOTAL 0.8 mg/dL (0.2-1.0); CALCIUM 9.4 mg/dL (8.5-10.1); CREATININE 0.93 mg/dL (0.7-1.3); TOTAL PROTEIN 8.4 g/dL (6.4-8.2)
[2020-04-27 11:23] LABS: MD SCAN
[2020-04-27 11:44] LABS: MICROSCOPIC AUTO
[2020-04-27 12:46] VITALS: BP 155/73
[2020-04-27] MEDS ORDERED: MAALOX/HYOSCYAMINE/LIDOCAINE 45 ML BTL ONE (13:07)
[2020-04-27] MEDS ORDERED: MAALOX/HYOSCYAMINE/LIDOCAINE 45 ML BTL PO ONE (13:30)
== END 2020-04-27 14:11 | disposition home or self-care (01) ==
LOC: ED 11:10
DX: K25.3 Acute gastric ulcer without hemorrhage or perforation (principal); I21.9 Acute myocardial infarction, unspecified; I51.7 Cardiomegaly
CPT/HCPCS: 36415; 74022; 80053; 81001; 83690; 85025; 87086; 93005; 96361; 96374; 96375; 99285; J2270; J2405; J7030

== ENCOUNTER 2020-04-27 18:02 | Emergency (ER) | payer MEDICAID ==
[~2020-04-27] VITALS: Ht 177.8 cm; Wt 60.9 kg
--- NOTE | 2020-04-27 18:27 | NUR ---
PT PLACED IN HOSPITAL GOWN. PT GIVEN WARM BLANKETS. PT HAVING DRY HEAVING AFTER CHANGING INTO HOSPITAL GOWN. ERP AWARE.
[2020-04-27] MEDS ORDERED: FAMOTIDINE 20 MG/2 ML IV ONE (18:30)
[2020-04-27] MEDS ORDERED: ONDANSETRON 2MG/ML, 2ML IVPush ONE (18:30)
[2020-04-27] MEDS ORDERED: MAALOX/HYOSCYAMINE/LIDOCAINE 45 ML BTL PO ONE (18:30)
[2020-04-27] MEDS ORDERED: SODIUM CHLORIDE 0.9% 1,000ML IVBOLUS ONE (18:30)
[2020-04-27] MEDS ORDERED: FAMOTIDINE 20 MG/2 ML ONE (18:33)
[2020-04-27] MEDS ORDERED: MAALOX/HYOSCYAMINE/LIDOCAINE 45 ML BTL ONE (18:33)
[2020-04-27] MEDS ORDERED: ONDANSETRON 2MG/ML, 2ML ONE (18:33)
--- NOTE | 2020-04-27 18:57 | NUR ---
REPORT GIVEN TO MADELYN UGALDE
[2020-04-27] MEDS ORDERED: OMNIPAQUE 350 MG/ML, 100ML BOTTLE ONE (20:25)
[2020-04-27 21:55] VITALS: BP 138/74
== END 2020-04-27 21:57 | disposition home or self-care (01) ==
LOC: ED 18:22
DX: K20.90 Esophagitis, unspecified without bleeding (principal); R63.0 Anorexia; Z87.11 Personal history of peptic ulcer disease; Z68.1 Body mass index [BMI] 19.9 or less, adult; F17.200 Nicotine dependence, unspecified, uncomplicated
CPT/HCPCS: 71260; 74177; 96361; 96374; 96375; 99285; J2405; J7030; Q9967

== ENCOUNTER 2020-07-12 21:26 | Inpatient (IN) | payer MEDICAID ==
[~2020-07-12] VITALS: Ht 177.8 cm; Wt 58.2 kg
[2020-07-12] MEDS ORDERED: ONDANSETRON ODT 4 MG PO PRN (22:00)
[2020-07-12] MEDS ORDERED: DOCUSATE 100 MG CAPSULE PO PRN (22:00)
[2020-07-12] MEDS ORDERED: ACETAMINOPHEN 325 MG TABLET PO PRN (22:00)
[2020-07-12] MEDS ORDERED: BISACODYL 10 MG SUPP PR PRN (22:00)
[2020-07-12] MEDS ORDERED: POLYETHYLENE GLYCOL 17 GM PACKET PO PRN (22:00)
[2020-07-12 22:08] VITALS: BP 131/81
[2020-07-12] MEDS ORDERED: PLEASE ENTER HEIGHT AND WEIGHT MC SCH (22:30)
[2020-07-12 22:39] VITALS: BP 131/81
[2020-07-12] MEDS ORDERED: NICOTINE 7 MG/24 HR PATCH.TD24 TD SCH (23:30)
[2020-07-13 02:13] LABS: MICROSCOPIC INDICATED
[2020-07-13 02:14] LABS: AMPHETAMINE SCREEN, URINE Positive (Negative); BARBITURATE SCREEN, URINE Negative (Negative); BENZODIAZEPINE SCREEN, URINE Negative (Negative); CANNABINOID SCREEN, URINE Negative (Negative); COCAINE SCREEN, URINE Negative (Negative); METHADONE SCREEN, URINE Negative (Negative); OPIATE SCREEN, URINE Negative (Negative)
[2020-07-13] MEDS ORDERED: SULF1TAB24 PO (02:18)
[2020-07-13] MEDS ORDERED: SERT50TA28 PO (02:18)
[2020-07-13] MEDS ORDERED: QUET300T PO (02:18)
[2020-07-13] MEDS ORDERED: TAMS-11 PO (02:18)
[2020-07-13] MEDS ORDERED: HYDR50CA2 PO (02:18)
[2020-07-13 06:49] LABS: CHOL/HDL RATIO 2.2; FREE T4 (FREE THYROXINE) 0.62 ng/dL (0.76-1.46)
[2020-07-13 07:12] VITALS: BP 152/80
[2020-07-13] MEDS ORDERED: NICOTINE 7 MG/24 HR PATCH.TD24 ONE (08:40)
[2020-07-13] MEDS ORDERED: LORazepam 1MG TABLET ONE (08:49)
[2020-07-13] MEDS ORDERED: ACAMPROSATE 333 MG TABLET.DR ONE (08:50)
[2020-07-13] MEDS: ACAMPROSATE 333 MG TABLET.DR PO SCH ×3 (09:03→20:37)
[2020-07-13] MEDS: SERTRALINE 50MG TABLET PO SCH (09:03)
[2020-07-13] MEDS: LORazepam 1MG TABLET PO SCH ×3 (09:03→20:37)
[2020-07-13] MEDS: NICOTINE 7 MG/24 HR PATCH.TD24 TD SCH (09:05)
[2020-07-13] MEDS: TAMSULOSIN 0.4 MG CAP.ER.24H PO SCH (13:36)
[2020-07-13] MEDS: THIAMINE 100MG TABLET PO SCH (13:36)
[2020-07-13] MEDS: FOLIC ACID 1 MG TABLET PO SCH (13:36)
[2020-07-13] MEDS: NYSTATIN CRM 15GM TP SCH ×2 (13:47→20:38)
[2020-07-13 19:30] VITALS: BP 130/74
[2020-07-13] MEDS ORDERED: SULFAMETH./TRIMETHOPRIM DS 800MG/160MG TABLET PO SCH (21:00)
[2020-07-13] MEDS ORDERED: NICOTINE 7 MG/24 HR PATCH.TD24 TD SCH (23:00)
[2020-07-14] MEDS: LORazepam 1MG TABLET PO PRN ×2 (00:11→04:11)
[2020-07-14 07:48] VITALS: BP 105/70
[2020-07-14] MEDS: LORazepam 1MG TABLET PO SCH ×3 (08:43→21:09)
[2020-07-14] MEDS: THIAMINE 100MG TABLET PO SCH (08:43)
[2020-07-14] MEDS: ACAMPROSATE 333 MG TABLET.DR PO SCH ×3 (08:43→21:08)
[2020-07-14] MEDS: SERTRALINE 50MG TABLET PO SCH (08:43)
[2020-07-14] MEDS: FOLIC ACID 1 MG TABLET PO SCH (08:43)
[2020-07-14] MEDS: TAMSULOSIN 0.4 MG CAP.ER.24H PO SCH (08:43)
[2020-07-14] MEDS: NICOTINE 7 MG/24 HR PATCH.TD24 TD SCH (08:45)
[2020-07-14] MEDS: NYSTATIN CRM 15GM TP SCH ×2 (10:07→21:00)
[2020-07-14 19:37] VITALS: BP 105/74
[2020-07-14] MEDS: QUETIAPINE 100MG TABLET PO SCH (21:08)
[2020-07-14] MEDS: HYDROXYZINE PAMOATE 50MG CAP PO PRN (21:31)
[2020-07-15 07:28] VITALS: BP 114/72
[2020-07-15] MEDS: NICOTINE 7 MG/24 HR PATCH.TD24 TD SCH (08:00)
[2020-07-15] MEDS: LORazepam 1MG TABLET PO SCH ×3 (08:00→20:19)
[2020-07-15] MEDS: SERTRALINE 50MG TABLET PO SCH (08:00)
[2020-07-15] MEDS: TAMSULOSIN 0.4 MG CAP.ER.24H PO SCH (08:00)
[2020-07-15] MEDS: FOLIC ACID 1 MG TABLET PO SCH (08:00)
[2020-07-15] MEDS: ACAMPROSATE 333 MG TABLET.DR PO SCH ×3 (08:00→20:19)
[2020-07-15] MEDS: THIAMINE 100MG TABLET PO SCH (08:00)
[2020-07-15] MEDS: NYSTATIN CRM 15GM TP SCH ×2 (08:03→20:19)
[2020-07-15 18:32] VITALS: BP 101/67
[2020-07-15] MEDS: QUETIAPINE 100MG TABLET PO SCH (20:19)
[2020-07-16 07:51] VITALS: BP 105/62
[2020-07-16] MEDS: FOLIC ACID 1 MG TABLET PO SCH (08:19)
[2020-07-16] MEDS: THIAMINE 100MG TABLET PO SCH (08:19)
[2020-07-16] MEDS: SERTRALINE 50MG TABLET PO SCH (08:19)
[2020-07-16] MEDS: ACAMPROSATE 333 MG TABLET.DR PO SCH ×3 (08:19→20:33)
[2020-07-16] MEDS: LORazepam 1MG TABLET PO SCH (08:19)
[2020-07-16] MEDS: TAMSULOSIN 0.4 MG CAP.ER.24H PO SCH (08:19)
[2020-07-16] MEDS: NICOTINE 7 MG/24 HR PATCH.TD24 TD SCH (08:20)
[2020-07-16] MEDS: NYSTATIN CRM 15GM TP SCH ×2 (09:26→20:37)
[2020-07-16 19:31] VITALS: BP 115/71
[2020-07-16] MEDS: QUETIAPINE 100MG TABLET PO SCH (20:37)
[2020-07-16] MEDS: HYDROXYZINE PAMOATE 50MG CAP PO PRN (20:43)
[2020-07-17 07:30] VITALS: BP 107/69
[2020-07-17] MEDS: NYSTATIN CRM 15GM TP SCH ×2 (09:00→21:00)
[2020-07-17] MEDS: SERTRALINE 50MG TABLET PO SCH (09:18)
[2020-07-17] MEDS: THIAMINE 100MG TABLET PO SCH (09:18)
[2020-07-17] MEDS: FOLIC ACID 1 MG TABLET PO SCH (09:18)
[2020-07-17] MEDS: TAMSULOSIN 0.4 MG CAP.ER.24H PO SCH (09:18)
[2020-07-17] MEDS: ACAMPROSATE 333 MG TABLET.DR PO SCH ×3 (09:19→20:11)
[2020-07-17] MEDS: NICOTINE 7 MG/24 HR PATCH.TD24 TD SCH (09:20)
[2020-07-17 19:42] VITALS: BP 107/70
[2020-07-17] MEDS: HYDROXYZINE PAMOATE 50MG CAP PO PRN (20:11)
[2020-07-17] MEDS: QUETIAPINE 100MG TABLET PO SCH (20:11)
[2020-07-18 07:56] VITALS: BP 103/61
[2020-07-18] MEDS: NYSTATIN CRM 15GM TP SCH ×2 (09:00→20:25)
[2020-07-18] MEDS: FOLIC ACID 1 MG TABLET PO SCH (09:08)
[2020-07-18] MEDS: THIAMINE 100MG TABLET PO SCH (09:08)
[2020-07-18] MEDS: TAMSULOSIN 0.4 MG CAP.ER.24H PO SCH (09:08)
[2020-07-18] MEDS: ACAMPROSATE 333 MG TABLET.DR PO SCH ×3 (09:08→20:24)
[2020-07-18] MEDS: SERTRALINE 50MG TABLET PO SCH (09:09)
[2020-07-18] MEDS: NICOTINE 7 MG/24 HR PATCH.TD24 TD SCH (09:11)
[2020-07-18 20:08] VITALS: BP 149/78
[2020-07-18] MEDS: HYDROXYZINE PAMOATE 50MG CAP PO PRN (20:24)
[2020-07-18] MEDS: QUETIAPINE 100MG TABLET PO SCH (20:24)
[2020-07-19 07:16] VITALS: BP 110/68
[2020-07-19] MEDS: FOLIC ACID 1 MG TABLET PO SCH (08:37)
[2020-07-19] MEDS: THIAMINE 100MG TABLET PO SCH (08:37)
[2020-07-19] MEDS: TAMSULOSIN 0.4 MG CAP.ER.24H PO SCH (08:37)
[2020-07-19] MEDS: SERTRALINE 50MG TABLET PO SCH (08:37)
[2020-07-19] MEDS: NICOTINE 7 MG/24 HR PATCH.TD24 TD SCH (08:37)
[2020-07-19] MEDS: ACAMPROSATE 333 MG TABLET.DR PO SCH ×3 (08:37→20:19)
[2020-07-19] MEDS: NYSTATIN CRM 15GM TP SCH ×2 (09:09→20:22)
[2020-07-19 19:30] VITALS: BP 108/70
[2020-07-19] MEDS: HYDROXYZINE PAMOATE 50MG CAP PO PRN (20:19)
[2020-07-19] MEDS: QUETIAPINE 100MG TABLET PO SCH (20:20)
[2020-07-20 07:52] VITALS: BP 107/67
[2020-07-20] MEDS: ACAMPROSATE 333 MG TABLET.DR PO SCH (08:46)
[2020-07-20] MEDS: FOLIC ACID 1 MG TABLET PO SCH (08:46)
[2020-07-20] MEDS: NICOTINE 7 MG/24 HR PATCH.TD24 TD SCH (08:46)
[2020-07-20] MEDS: THIAMINE 100MG TABLET PO SCH (08:46)
[2020-07-20] MEDS: TAMSULOSIN 0.4 MG CAP.ER.24H PO SCH (08:46)
[2020-07-20] MEDS: SERTRALINE 50MG TABLET PO SCH (08:46)
[2020-07-20] MEDS: NYSTATIN CRM 15GM TP SCH (08:49)
[2020-07-20] MEDS ORDERED: NICO-485 TD (12:49)
[2020-07-20] MEDS ORDERED: ACAM333T7 PO (12:49)
[2020-07-20] MEDS ORDERED: QUET100T PO (12:49)
[2020-07-20] MEDS ORDERED: SERT50TA28 PO (12:49)
[2020-07-20] MEDS ORDERED: TAMS-11 PO (12:49)
[2020-07-20] MEDS ORDERED: HYDR50CA2 PO (12:49)
== END 2020-07-20 14:39 | disposition home or self-care (01) | DRG 885 ==
LOC: 3E 22:02
PROVIDERS: ADMIT Psychiatry & Neurology Psychosomatic Medicine; ATTEND Psychiatry & Neurology Psychosomatic Medicine
DX: F33.2 Major depressive disorder, recurrent severe without psychotic features (principal); R45.851 Suicidal ideations; F10.231 Alcohol dependence with withdrawal delirium; Z20.822 Contact with and (suspected) exposure to COVID-19; F41.9 Anxiety disorder, unspecified; G47.00 Insomnia, unspecified; F17.200 Nicotine dependence, unspecified, uncomplicated; L29.9 Pruritus, unspecified; Z59.0 Homelessness; Z79.899 Other long term (current) drug therapy
CPT/HCPCS: 36415; 80061; 80307; 81001; 82607; 84439; 84443; 87040; 87086; 87426

== ENCOUNTER 2020-08-08 19:25 | Emergency (ER) | payer MEDICAID ==
[~2020-08-08 19:25] MED LIST changes: +ACAM333T7 PO; +HYDR50CA2 PO; +NICO-485 TD; +QUET100T PO; +QUET300T PO; +SERT50TA28 PO; +SULF1TAB24 PO; +TAMS-11 PO
== END 2020-08-08 19:38 | disposition left against medical advice (07) ==
LOC: ED 19:32
DX: F10.10 Alcohol abuse, uncomplicated (principal); Z53.21 Procedure and treatment not carried out due to patient leaving prior to being seen by health care provider; Y90.0 Blood alcohol level of less than 20 mg/100 ml

== ENCOUNTER 2020-08-11 22:27 | Emergency (ER) | payer MEDICAID ==
[~2020-08-11] VITALS: Ht 172.7 cm; Wt 55.0 kg
[2020-08-11] MEDS ORDERED: LIDOCAINE 2%,20 ML JEL.PF.APP MM ONE ×2 (23:12→23:30)
--- NOTE | 2020-08-11 23:39 | NUR ---
PT NAD, RESTING ON GURNEY, UA SENT TO LAB AT THIS TIME. VSS, APPEARS COMFORTABLE, WCTM.
[2020-08-11 23:53] LABS: MICROSCOPIC NOT IND
[2020-08-12 01:46] VITALS: BP 101/45
--- NOTE | 2020-08-12 01:47 | NUR ---
Patient given discharge instructions and they have confirmed that they understand the instructions. Patient ambulatory with steady gait. nad, denies additional questions or needs, repeatead cath care instructions back to rn. no personals belongings left in room after dc. pt to call [facility] for ride. provided cath care supplies on dc.
== END 2020-08-12 01:49 | disposition home or self-care (01) ==
LOC: ED 23:00
DX: N40.1 Benign prostatic hyperplasia with lower urinary tract symptoms (principal); R33.8 Other retention of urine; R10.9 Unspecified abdominal pain; F17.210 Nicotine dependence, cigarettes, uncomplicated
CPT/HCPCS: 51702; 81003; 99284; 99406

== ENCOUNTER 2020-08-12 22:25 | Emergency (ER) | payer MEDICAID ==
[2020-08-12 22:26] VITALS: BP 150/68
[2020-08-12] MEDS ORDERED: PHENAZOPYRIDINE 200 MG TABLET ONE (22:48)
--- NOTE | 2020-08-12 22:52 | NUR ---
PT RHONDA. PER EMS PT HAD CATHETER PLACED HERE YESTERDAY AND NOW IS HAVING BURNING AND LEAKING. PT STATES HE HAS PREVIOUSLY BEEN SUICIDAL, BUT IS NOT CURRENTLY. PT RESTING IN ZIGGY MURO AT THIS TIME, PAOLO.
[2020-08-12] MEDS ORDERED: PHENAZOPYRIDINE 200 MG TABLET PO ONE (23:00)
--- NOTE | 2020-08-12 23:12 | NUR ---
PT REFUSING BLADDER IRRIGATION AT THIS TIME. PT PROVIDED DISCHARGE INSTRUCTIONS AND EDUCATION. PT AMBULATED STEADILY TO DISCHARGE DESK.
== END 2020-08-12 23:15 | disposition home or self-care (01) ==
LOC: ED 22:58
DX: R33.9 Retention of urine, unspecified (principal); F17.200 Nicotine dependence, unspecified, uncomplicated
CPT/HCPCS: 99283

== ENCOUNTER 2020-08-20 14:31 | Emergency (ER) | payer MEDICAID ==
[~2020-08-20] VITALS: Ht 177.8 cm; Wt 55.5 kg
[~2020-08-20 14:31] MED LIST changes: +SULF-23 PO; -SULF1TAB24 PO
[2020-08-20 14:47] VITALS: BP 148/64
--- NOTE | 2020-08-20 15:31 | NUR ---
NEEDLEWORKER: PT TO ROOM FROM LOBBY.
--- NOTE | 2020-08-20 15:52 | NUR ---
CC OF URINARY RETENTION. PT STATES HE HAD ZARAGOZA BUT IT WAS PAINFUL SO IT WAS REMOVED. PT ALSO STATES HE HASN'T DRINKING MUCH DUE TO LAST TIME HE CAME IN FOR THIS AND HAD SOME PAIN/. HX OF PROSTATE CANCER
--- NOTE | 2020-08-20 15:52 | NUR ---
BLADDER SCAN 85 MLS.
--- NOTE | 2020-08-20 15:53 | NUR ---
DR DIAZ AT BEDSIDE, NO ZARAGOZA AT THIS TIME
--- NOTE | 2020-08-20 16:20 | NUR ---
PT REQUESTING TO GO HOME, STATES HE WANTS TO FOLLOW UP WITH HIS UROLOGIST TOMORROW. DR DIAZ UPDATED, PT PENDING DC
== END 2020-08-20 16:45 | disposition home or self-care (01) ==
LOC: ED 16:35
DX: R10.2 Pelvic and perineal pain (principal); R33.9 Retention of urine, unspecified; F17.200 Nicotine dependence, unspecified, uncomplicated
CPT/HCPCS: 99284

== ENCOUNTER 2020-08-30 18:58 | Emergency (ER) | payer MEDICAID ==
[~2020-08-30] VITALS: Ht 175.3 cm; Wt 57.0 kg
[2020-08-30 19:02] VITALS: BP 143/86
--- NOTE | 2020-08-30 19:50 | NUR ---
PT WANDERING HALLWAY WITH BOTTLE OF VODKA. WHEN CONFRONTED PT DENIED HAVING ALCOHOL. BOTTLE OF VODKA WAS FOUND IN CUPOBOARD. SECURITY CALLED. PT LEAVING.
== END 2020-08-30 19:56 | disposition home or self-care (01) ==
LOC: ED 19:30
DX: R30.0 Dysuria (principal); Z46.6 Encounter for fitting and adjustment of urinary device; Z59.0 Homelessness; Y04.0XXA Assault by unarmed brawl or fight, initial encounter; Y93.89 Activity, other specified; Y92.89 Other specified places as the place of occurrence of the external cause; Y99.8 Other external cause status
CPT/HCPCS: 51702; 87491; 87591; 99284

== ENCOUNTER 2020-08-31 09:40 | Emergency (ER) | payer MEDICAID ==
[~2020-08-31] VITALS: Ht 175.3 cm; Wt 54.3 kg
[2020-08-31 09:45] VITALS: BP 131/77
--- NOTE | 2020-08-31 10:21 | NUR ---
PT WANDERING HALLWAY. ASKED TO GO BACK TO ROOM. BLANKETS PROVIDED
--- NOTE | 2020-08-31 10:29 | NUR ---
PT REPEATEDLY WANDERING HALLWAY. YELLING AT NURSES STATION ABOUT HIS TV NOT WORKING. SECURITY CALLED. PT TO BE ESCORTED OUT
== END 2020-08-31 10:45 | disposition home or self-care (01) ==
LOC: ED 10:41
DX: T83.098A Other mechanical complication of other urinary catheter, initial encounter (principal); F17.200 Nicotine dependence, unspecified, uncomplicated; Z87.11 Personal history of peptic ulcer disease
CPT/HCPCS: 99281

== ENCOUNTER 2020-09-07 23:53 | Emergency (ER) | payer MEDICAID, OTHER ==
[~2020-09-07] VITALS: Ht 177.8 cm; Wt 55.0 kg
[2020-09-08] MEDS ORDERED: LIDOCAINE 2%,20 ML JEL.PF.APP MM ONE
[2020-09-08 00:01] VITALS: BP 137/72
--- NOTE | 2020-09-08 00:02 | NUR ---
BLADDER SCAN 246 MLS
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
[2020-09-08 00:26] LABS: BASOPHILS % (AUTO) 1 % (0-1); EOSINOPHILS % (AUTO) 3 % (1-7); LYMPHOCYTES % (AUTO) 19 % (22-44); MEAN CORPUSCULAR HGB CONC 33.7 g/dL (33.2-36.2); MEAN PLATELET VOLUME 8.3 fL (7.4-10.4); MONOCYTES % (AUTO) 9 % (2-9); NEUTROPHILS % (AUTO) 69 % (42-75); PLATELET COUNT 210 x10^3/uL (130-400); RED BLOOD COUNT 4.53 x10^6/uL (4.38-5.82); RED CELL DISTRIBUTION WIDTH 15.4 % (9.4-14.8)
[2020-09-08 00:27] LABS: MD NO
[2020-09-08 00:33] LABS: ALBUMIN 3.1 g/dL (3.4-5.0); ANION GAP 5 mmol/L (5-15); CALCIUM 8.7 mg/dL (8.5-10.1); CHLORIDE 108 mmol/L (98-107); CREATININE 0.75 mg/dL (0.7-1.3)
--- NOTE | 2020-09-08 01:28 | NUR ---
ZARAGOZA CATHETER INSERTED WITH FANNIE UGALDE. PT TOLERATED WELL, CLEAR YELLOW URINE OUTPUT. UA COLLECTED AND SENT TO LAB
[2020-09-08 01:44] LABS: MICROSCOPIC NOT IND
--- NOTE | 2020-09-08 01:47 | NUR ---
REPORT GIVEN TO EZEQUIEL UGALDE
--- NOTE | 2020-09-08 01:51 | NUR ---
REPORT FROM JUAN ASSUMED CARE OF PT
== END 2020-09-08 02:18 | disposition home or self-care (01) ==
LOC: ED 09-08 01:06
DX: N40.1 Benign prostatic hyperplasia with lower urinary tract symptoms (principal); R33.8 Other retention of urine; R10.30 Lower abdominal pain, unspecified; Z85.46 Personal history of malignant neoplasm of prostate
CPT/HCPCS: 36415; 51702; 80048; 81003; 82040; 85025; 99284

== ENCOUNTER 2020-11-29 22:22 | Emergency (ER) | payer MEDICAID, OTHER ==
[~2020-11-29] VITALS: Ht 175.3 cm; Wt 53.5 kg
[2020-11-29 22:30] VITALS: BP 120/75
--- NOTE | 2020-11-29 22:45 | NUR ---
GIULIANA RN: PATIENT NOT IN LOBBY AT THIS TIME FOR DISCHARGE.
== END 2020-11-29 23:16 | disposition home or self-care (01) ==
LOC: ED 23:00
DX: M79.662 Pain in left lower leg (principal); M79.671 Pain in right foot; R07.89 Other chest pain; F17.200 Nicotine dependence, unspecified, uncomplicated
CPT/HCPCS: 99283

== ENCOUNTER 2020-12-04 17:29 | Emergency (ER) | payer MEDICAID, OTHER ==
[~2020-12-04] VITALS: Ht 177.8 cm; Wt 50.0 kg
[2020-12-04] MEDS ORDERED: QUETIAPINE 25MG TABLET ONE (18:14)
[2020-12-04 18:21] LABS: BASOPHILS % (AUTO) 1 % (0-1); EOSINOPHILS % (AUTO) 2 % (1-7); LYMPHOCYTES % (AUTO) 32 % (22-44); MEAN CORPUSCULAR HEMOGLOBIN 30.6 pg (27.5-34.5); MEAN CORPUSCULAR HGB CONC 34.2 g/dL (33.2-36.2); MONOCYTES % (AUTO) 9 % (2-9); NEUTROPHILS % (AUTO) 57 % (42-75); PLATELET COUNT 326 x10^3/uL (130-400); RED BLOOD COUNT 5.12 x10^6/uL (4.38-5.82); RED CELL DISTRIBUTION WIDTH 15.4 % (9.4-14.8)
[2020-12-04 18:25] LABS: ANION GAP 8 mmol/L (5-15); CALCIUM 9.8 mg/dL (8.5-10.1); CHLORIDE 103 mmol/L (98-107); CREATININE 1.59 mg/dL (0.7-1.3)
--- NOTE | 2020-12-04 18:28 | NUR ---
Medicated per order, pt watching tv.
--- NOTE | 2020-12-04 19:00 | NUR ---
PT BLADDER SCANNED 45 ML
[2020-12-04 19:54] VITALS: BP 117/69
[2020-12-04] MEDS ORDERED: QUETIAPINE 25MG TABLET PO SCH (21:00)
== END 2020-12-04 20:01 | disposition home or self-care (01) ==
LOC: ED 19:00
DX: K40.91 Unilateral inguinal hernia, without obstruction or gangrene, recurrent (principal); Z76.0 Encounter for issue of repeat prescription; F17.210 Nicotine dependence, cigarettes, uncomplicated; Z87.11 Personal history of peptic ulcer disease; Z85.46 Personal history of malignant neoplasm of prostate
CPT/HCPCS: 36415; 80048; 82040; 85025; 99283; 99406

== ENCOUNTER 2020-12-07 23:09 | Emergency (ER) | payer MEDICAID ==
[~2020-12-07] VITALS: Ht 175.3 cm; Wt 52.0 kg
[2020-12-07 23:27] VITALS: BP 120/66
[2020-12-07] MEDS ORDERED: DIPH,PERTUSS(ACELL),TET VAC/PF 0.5 ML IM-VACC ONE ×2 (23:51→23:57)
[2020-12-07] MEDS ORDERED: LIDOCAINE-MPF 1%, 5ML ONE (23:51)
[2020-12-08] MEDS ORDERED: LIDOCAINE 1%-EPI 1:100K, 20ML INFIL ONE
[2020-12-08] MEDS ORDERED: DIPH,PERTUSS(ACELL),TET VAC/PF 0.5 ML IM-VACC ONE
[2020-12-08] MEDS ORDERED: MIDAZOLAM 1 MG/ML, 2ML ONE (00:31)
--- NOTE | 2020-12-08 00:40 | NUR ---
Pt given IM Versed at this time to facilitate compliant behavior for CT scan. Will reassess in 30 minutes. Pt remains in restraints at this time.
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
[2020-12-08] MEDS ORDERED: MIDAZOLAM 1 MG/ML, 5ML IM ONE (01:00)
--- NOTE | 2020-12-08 01:41 | NUR ---
Pt back in 4 point restraints at this time due to continued aggression. [employer] remains at bedside. When pt is medically cleared, pt will be taken to half-way.
--- NOTE | 2020-12-08 02:20 | NUR ---
Discharged with police, in custody. Medically cleared for residential.
== END 2020-12-08 02:22 | disposition home or self-care (01) ==
LOC: ED 23:31
DX: S01.81XA Laceration without foreign body of other part of head, initial encounter (principal); N40.0 Benign prostatic hyperplasia without lower urinary tract symptoms; X58.XXXA Exposure to other specified factors, initial encounter; Y93.89 Activity, other specified; Y92.009 Unspecified place in unspecified non-institutional (private) residence as the place of occurrence of the external cause; Y99.8 Other external cause status
CPT/HCPCS: 12013; 70450; 90471; 90715; 96372; 99284; J2250

== ENCOUNTER 2021-01-14 08:56 | Emergency (ER) | payer MEDICAID ==
[~2021-01-14] VITALS: Ht 175.3 cm; Wt 60.4 kg
[~2021-01-14 08:56] MED LIST changes: -QUET100T PO; +QUET100T2 PO; -QUET300T PO; +QUET300T2 PO
[2021-01-14] MEDS ORDERED: QUET25TA3 PO (09:09)
[2021-01-14] MEDS ORDERED: TRAZ-175 PO (09:09)
[2021-01-14] MEDS ORDERED: SERT-237 PO (09:09)
--- NOTE | 2021-01-14 09:11 | NUR ---
DETOX AT [place] 8 DAYS AGO; PROGRAM COMPLETED; [facility]. BURNING SENSATION Q 30 MINS, VOMITS AFTER DINNER X 8 DAYS. HX HIATAL HERNIA. FREQUENT CAFFEINE INTAKE. NO MED TAKEN FOR SX. LAST BM: YESTERDAY. DENIED BLACK, TARRY STOOL. HAD A BANANA THIS MORNING.
--- NOTE | 2021-01-14 09:16 | NUR ---
ERP BS FOR EXAM.
[2021-01-14] MEDS ORDERED: FAMOTIDINE 20 MG TABLET ONE (09:27)
[2021-01-14] MEDS ORDERED: FAMOTIDINE 20 MG TABLET PO ONE (09:30)
--- NOTE | 2021-01-14 09:30 | NUR ---
PEPCID GIVEN PER RONNA. LAB AT BS.
[2021-01-14 10:07] LABS: ALBUMIN 3.3 g/dL (3.4-5.0); ANION GAP 4 mmol/L (5-15); BASOPHILS % (AUTO) 1 % (0-1); CALCIUM 8.9 mg/dL (8.5-10.1); CHLORIDE 103 mmol/L (98-107); EOSINOPHILS % (AUTO) 6 % (1-7); LYMPHOCYTES % (AUTO) 35 % (22-44); MEAN CORPUSCULAR HEMOGLOBIN 30.3 pg (27.5-34.5); MEAN CORPUSCULAR HGB CONC 34.1 g/dL (33.2-36.2); MEAN PLATELET VOLUME 8.3 fL (7.4-10.4); MONOCYTES % (AUTO) 14 % (2-9); NEUTROPHILS % (AUTO) 45 % (42-75); PLATELET COUNT 281 x10^3/uL (130-400); RED BLOOD COUNT 4.52 x10^6/uL (4.38-5.82); RED CELL DISTRIBUTION WIDTH 14.9 % (9.4-14.8)
[2021-01-14 10:13] LABS: ALKALINE PHOSPHATASE 106 U/L (45-117); BILIRUBIN,TOTAL 0.3 mg/dL (0.2-1.0); CREATININE 0.95 mg/dL (0.7-1.3); TOTAL PROTEIN 7.6 g/dL (6.4-8.2); TROPONIN I < 0.015 ng/mL (0.000-0.045)
[2021-01-14 10:25] LABS: ALANINE AMINOTRANSFERASE 26 U/L (12-78)
[2021-01-14 10:50] VITALS: BP 100/54
--- NOTE | 2021-01-14 10:57 | NUR ---
Ambulatory to & from [facility] w/out incident; gait steady.
--- NOTE | 2021-01-14 11:01 | NUR ---
Written DC instructions discussed w/ pt; questions answered; understanding verbalized. Pt ambulatory to DC desk w/ steady gait. Bus pass provided to pt.
== END 2021-01-14 11:03 | disposition home or self-care (01) ==
LOC: ED 09:26
DX: K21.9 Gastro-esophageal reflux disease without esophagitis (principal); R94.31 Abnormal electrocardiogram [ECG] [EKG]; Z87.11 Personal history of peptic ulcer disease; Z85.46 Personal history of malignant neoplasm of prostate
CPT/HCPCS: 36415; 80053; 83690; 84484; 85025; 93005; 99284